=== PATIENT | female | born 1935 | race Caucasian/White ===

== ENCOUNTER → 2024-08-04 | Outpatient (CLI) | payer MEDICARE, OTHER, SELFPAY ==
--- NOTE | 2024-08-04 15:36 | DI.CT.S_ITS ---
PROCEDURE: CT CHEST WO CON INDICATIONS: black spot found on lung TECHNIQUE: Noncontrast 5 mm thick sections acquired from the pulmonary apices to the posterior costophrenic angles. 1 mm lung window, 5 mm thick coronal and sagittal and 7 mm axial MIP reformats were then acquired. For radiation dose reduction, the following was used: automated exposure control, adjustment of mA and/or kV according to patient size. COMPARISON: [facility], CR, XR CHEST 2 VIEWS, 03/27/2024, 14:42. FINDINGS: Image quality: Diagnostic. Lower Neck: No enlarged lymph nodes. Thyroid: No thyroid nodules which require sonographic follow up, per consensus guidelines. Axillae: No enlarged lymph nodes. Chest Wall: Unremarkable. Bones: Unremarkable. Lungs and Pleura: No pneumothorax or pleural effusions. 1.6 cm region volume loss with nodular contours and internal bronchiectasis in the lingula (series 3, image 238). Mild bronchial thickening with endobronchial secretions. Heart: Heart size is normal. No pericardial effusion. Thoracic Vessels: The aorta and pulmonary arteries demonstrate normal size. Mediastinum and Tasia: No enlarged lymph nodes. Esophagus: No wall thickening. No hiatal hernia. Upper Abdomen: Hepatic cysts. IMPRESSION: 1.6 cm region of volume loss with nodular contours and internal bronchiectasis in the lingula, corresponding to the nodularity seen on comparison x-ray. Findings probably represent renal atelectasis, less likely malignancy. Six-month follow-up with chest CT should be considered. Mild central bronchial thickening with endobronchial secretions. Dictated by: Reuben Velazquez M.D. on 08/27/2024 at 14:21 Approved by: Reuben Velazquez M.D. on 08/27/2024 at 14:24
== END ==
PROVIDERS: PCP Family Medicine; Referring Provider Family Medicine; Visit Provider Family Medicine
DX: J47.9 Bronchiectasis, uncomplicated (principal); R91.8 Other nonspecific abnormal finding of lung field; K76.89 Other specified diseases of liver
CPT/HCPCS: 71250